=== PATIENT | female | born 1965 | race Hispanic/Latino ===

== ENCOUNTER → 2017-06-15 | Day surgery (SDC) | payer BC ==
[2017-06-11 12:38] LABS: BASOPHILS % 0.4 % (0.0-1.0); EOSINOPHILS % 0.5 % (0.0-6.0); HEMATOCRIT 37.8 % (34.2-44.1); HEMOGLOBIN 12.4 g/dL (12.0-16.0); LYMPHOCYTES # (AUTO) 2.1 (1.0-3.2); LYMPHOCYTES % 28.1 % (18.0-39.1); MEAN CORPUSCULAR HEMOGLOBIN 26.1 pg (28-32); MEAN CORPUSCULAR HGB CONC 32.8 g/dL (31-35); MEAN CORPUSCULAR VOLUME 79.4 fL (81-99); MONOCYTES # (AUTO) 0.7 (0.2-0.8); MONOCYTES % 9.2 % (4.4-11.3); NEUTROPHILS # (AUTO) 4.6 (2.1-6.9); NEUTROPHILS % 61.4 % (38.7-80.0); PLATELET COUNT 325 x10e3/uL (140-360); RED BLOOD COUNT 4.76 x10e6/uL (3.6-5.1); RED CELL DISTRIBUTION WIDTH 15.3 % (11.7-14.4)
[~2017-06-15] MED LIST: ATORVASTATIN CA10 MG PO; FENTANYL CITRATE/PF 100MCG/2 ML INJ ONE; FERROUS SULFAT325 MG PO; GABAPENTIN100 MG PO; MECLIZINE HCL12.5 MG PO; MIDAZOLAM HCL 2 MG/2 ML VIAL ONE; PANTOPRAZOLE SO40 MG PO; PROPOFOL IV EMULSION 10 MG/ML 50 ML VIAL ONE; ROPINIROLE HC0.25 MG PO; SULFASALAZINE500 MG PO; XARELTO20 MG PO
--- OUTSIDE RECORDS SUMMARY | 2017-06-15 10:24 | XMS REPORT | Summary of Care ---
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 Active Baclofen 10 MG Oral Tablet TAKE 1 TABLET TWICE DAILY. * Refills: 0 Active Meclizine HCl - 12.5 MG Oral Tablet TAKE 2 TABLET DAILY * Refills: 0 Active Vitamin D3 5000 UNIT Oral Tablet TAKE 1 TABLET DAILY * Refills: 0 Active Xarelto 20 MG Oral Tablet TAKE 1 TABLET DAILY * Refills: 0 Active Atorvastatin Calcium 40 MG Oral Tablet TAKE 1 TABLET DAILY. * Refills: 0 Active 90 Tablet Bottle Allergies and Adverse Reactions Name Dates Details No Known Drug Allergies (Allergy) Status: Active Past Medical History Name Dates Details History of back pain (V13.59, Z87.39) Status: Resolved History of heart attack (412, I25.2) Status: Resolved History of stroke (V12.54, Z86.73) Status: Resolved Procedures Procedure Dates Details History of permanent pacemaker insertion Completed Immunization Name Dates Details Immunizations not documented Social History Name Dates Details - Status: Name Dates Details Never smoker Vital Signs Date Test Result Details [id number] BP Systolic 111 mm[Hg] Status: Comments: Location: LUE; Position: Sitting BP Diastolic 54 mm[Hg] Status: Comments: Location: LUE; Position: Sitting Weight 162 lb Status: Body Mass Index Calculated 31.64 kg/m2 Status: Body Surface Area Calculated 1.71 m2 Status: Heart Rate 74 /min Status: Results Date Description Value Details Results not documented Plan of Care Name Dates Details Planned Observations Planned Goals not documented Planned Encounters Appointment; ANASTCAIO DECKER M.D. On: 23-Jun-2017 11:45 Interventions Provided Plan* Patient Education/Instructions: * Patient Education Provided * Reassurance * Counseling Provided. * Orders: * Physical Therapy * Follow Up: * Return to the clinic in 6 weeks or as needed. Instructions Name Dates Details Instructions not documented Encounters Appointment; ANASTACIO DECKER M.D. Encounter Diagnosis: Problem not documented On: 07-Apr-2017 14:30 Appointment; ANASTACIO DECKER M.D. Encounter Diagnosis: Problem not documented On: 12-May-2017 8:45
--- OUTSIDE RECORDS SUMMARY | 2017-06-15 10:24 | XMS REPORT | Clinical Summary ---
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 Disp. Refills Start End Date Status Date atorvastatin (LIPITOR) 40 TOME GLEN TABLETA POR V?A 1 01/06/20 Active MG tablet ORAL AL ACOSTARSE 17 gabapentin (NEURONTIN) TOME GLEN CAPSULA POR V?A 1 01/21/20 Active 100 mg capsule ORAL DOS VECES AL D?A CON 17 ALIMENTO XARELTO 20 mg tablet TOME GLEN TABLETA POR V?A 1 01/06/20 Active ORAL EN LA NOCHE 17 meclizine (ANTIVERT) 12.5 TOME GLEN TABLETA POR V?A 0 12/10/19 Active mg tablet ORAL AL ACOSTARSE FOR 17 DIZZINESS sulfaSALAzine TOME GLEN TABLETA POR V?A 2 01/06/20 Active (AZULFIDINE) 500 mg ORAL CADA SEIS HORAS 17 tablet folic acid (FOLVITE) 1 MG Take 1 mg by mouth daily. Active tablet methotrexate (TREXALL) Take 2.5 mg by mouth once Active 7.5 MG tablet a week. meloxicam (MOBIC) 15 mg Take 20 mg by mouth Active tablet daily. Active Problems No known active problems Encounters Date Type Specialty Care Team Description 01/27/2017 Office Visit Neurology [place] Sánchez MD Ischemic stroke ( Primary Dx); Paroxysmal atrial fibrillation; Other hyperlipidemia after 06/14/2016 Family History Medical History Relation Name Comments Diabetes Mother Relation Name Status Comments Mother Social History Tobacco Use Types Packs/Day Years Used Date Never Smoker Alcohol Use Drinks/Week oz/Week Comments No Sex Assigned at Date Recorded Not on file Last Filed Vital Signs Vital Sign Reading Time Taken Blood Pressure 137/80 01/27/2017 8:55 AM [employer] Pulse 64 01/27/2017 8:55 AM [employer]UP[employer] TE[employer]ER Temperature - - Respiratory Rate - - Oxygen Saturation - - Inhaled Oxygen - - Concentration Weight 71.7 kg (158 lb) 01/27/2017 8:55 AM [employer] TE[employer]ER Height 162.6 cm (5' 4") 01/27/2017 8:55 AM [employer]UPATIONAL [employer]ER[employer]ID[employer] TE[employer]ER Body Mass Index 27.12 01/27/2017 8:55 AM [employer]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
== END | disposition home or self-care (01) ==
LOC: OR 10:22
PROVIDERS: ATTEND Internal Medicine Gastroenterology
DX: Z12.11 Encounter for screening for malignant neoplasm of colon (principal); D12.2 Benign neoplasm of ascending colon; D12.3 Benign neoplasm of transverse colon; D12.4 Benign neoplasm of descending colon; K29.50 Unspecified chronic gastritis without bleeding; K44.9 Diaphragmatic hernia without obstruction or gangrene; K21.9 Gastro-esophageal reflux disease without esophagitis; K76.0 Fatty (change of) liver, not elsewhere classified; K64.8 Other hemorrhoids; M06.9 Rheumatoid arthritis, unspecified; D64.89 Other specified anemias; K59.09 Other constipation; R07.89 Other chest pain; R73.09 Other abnormal glucose; I69.354 Hemiplegia and hemiparesis following cerebral infarction affecting left non-dominant side; E78.5 Hyperlipidemia, unspecified; M19.90 Unspecified osteoarthritis, unspecified site; Z01.810 Encounter for preprocedural cardiovascular examination; Z01.812 Encounter for preprocedural laboratory examination; Z79.02 Long term (current) use of antithrombotics/antiplatelets; Z79.01 Long term (current) use of anticoagulants; Z68.31 Body mass index [BMI] 31.0-31.9, adult; Z95.0 Presence of cardiac pacemaker
CPT/HCPCS: 36415; 43239; 45380; 45385; 81025; 85025; 93005; J2250; 45384